=== PATIENT | female | born 1950 | race Caucasian/White ===

== ENCOUNTER 2016-10-26 19:46 | Inpatient (IN) | payer OTHER ==
[~2016-10-26] VITALS: Ht 157.5 cm; Wt 72.6 kg
[~2016-10-26 19:46] MED LIST: ATI1 PO; ATIVAN0.5 M1 PO; BENTYL10 MG PO; COL100 PO; COZAAR100 MG PO; ECO81 PO; ELA25 PO; HYDROCHLOROTHIA25 MG PO; KLOR-CON M2020 MEQ PO; LEXAPRO10 MG PO; LOMOTIL1 TAB PO; LOP50 PO; METOPROLOL SUCC50 M1 PO; METOPROLOL TART25 M1 PO; MYL80 CH; NPHOS PO; OMEPRAZOLE D/R20 M1 PO; ONDANSETRON ODT4 M1 PO; PRILOSEC20 MG PO; SERTRALINE HYDR50 M1 PO; STOOL SOFTENER100 MG PO; XANAX0.5 MG PO; ZOCOR10 MG PO; ZOFRAN ODT4 MG SL; [UNRECOGNIZED DRUG - REMARK] PO
[2016-10-26 21:32] LABS: BASOPHIL % 0.3 % (0-2); RED CELL DISTRIBUTION WIDTH 14.3 % (11.5-14.5)
[2016-10-26 21:37] LABS: CALCIUM 9.3 mg/dL (8.5-10.1); CARBON DIOXIDE 29.8 mmol/L (21-32); CHLORIDE SERUM 90 mmol/L (98-107); CREATININE SERUM 3.8 mg/dL (0.6-1.0); GFR1 13 mL/min; GLUCOSE SERUM 121 mg/dL (74-106); POTASSIUM SERUM 3.8 mmol/L (3.5-5.1); SODIUM SERUM 129 mmol/L (136-145)
[2016-10-26 21:41] LABS: ALBUMIN 3.1 g/dL (3.4-5.0); ALKALINE PHOSPHATASE 130 U/L (46-116); ALT/SGPT 201 U/L (14-59); AMYLASE 37 U/L (25-115); AST/SGOT 307 U/L (15-37); BILIRUBIN TOTAL 5.7 mg/dL (0.20-1.00); LIPASE 305 IU/L (73-393); TOTAL PROTEIN, SERUM 7.2 g/dL (6.4-8.2)
[2016-10-26 21:46] LABS: PLATELET COUNT 65 x10^3mcL (130-400)
[2016-10-26 22:53] LABS: UA SPECIFIC GRAVITY <=1.005 (1.005-1.035); microscopic required? YES; urine erythrocyte 1+ (NEGATIVE)
[2016-10-26 23:50] VITALS: BP 113/63
[2016-10-27 01:26] LABS: T3 TOTAL 0.96 ng/mL
[2016-10-27 01:35] LABS: CHOLESTEROL/HDL RATIO 4.1
[2016-10-27 01:42] LABS: FREE T4 1.81 ng/dL (0.76-1.46); FREE THYROXINE INDEX 3.7 ug/dL (1.4-4.5); T4(THYROXINE) 9.7 ug/dL (4.7-13.3)
[2016-10-27 06:01] LABS: BASOPHIL % 0.5 % (0-2); RED CELL DISTRIBUTION WIDTH 14.2 % (11.5-14.5)
[2016-10-27 06:02] VITALS: BP 103/60
[2016-10-27 06:28] LABS: CALCIUM 8.5 mg/dL (8.5-10.1); CARBON DIOXIDE 23.4 mmol/L (21-32); CREATININE SERUM 3.9 mg/dL (0.6-1.0); MAGNESIUM 1.2 mg/dL (1.8-2.4); PHOSPHOROUS 1.7 mg/dL (2.5-4.9); POTASSIUM SERUM 3.8 mmol/L (3.5-5.1)
[2016-10-27 06:59] LABS: PLATELET COUNT 66 x10^3mcL (130-400)
[2016-10-27 07:21] LABS: AMPHETAMINE QUAL UR NONE DETECTED (NEG <=1000)
[2016-10-27 09:00] VITALS: BP 100/65
[2016-10-27 12:17] VITALS: Ht 157.5 cm; Wt 72.6 kg
[2016-10-27 13:57] VITALS: BP 113/69
[2016-10-27 16:29] VITALS: BP 115/69
[2016-10-27 22:02] VITALS: BP 100/66
[2016-10-28 06:02] LABS: BASOPHIL % 0.2 % (0-2)
[2016-10-28 06:11] VITALS: BP 108/65
[2016-10-28 06:18] LABS: CALCIUM 7.9 mg/dL (8.5-10.1); CARBON DIOXIDE 24.2 mmol/L (21-32); MAGNESIUM 2.2 mg/dL (1.8-2.4); PHOSPHOROUS 3.1 mg/dL (2.5-4.9); POTASSIUM SERUM 3.6 mmol/L (3.5-5.1)
[2016-10-28 06:22] LABS: CREATININE SERUM 4.1 mg/dL (0.6-1.0)
[2016-10-28 06:52] LABS: PLATELET COUNT 63 x10^3mcL (130-400); RED CELL DISTRIBUTION WIDTH 14.6 % (11.5-14.5)
[2016-10-28 09:16] VITALS: BP 101/65
[2016-10-28 12:55] VITALS: BP 104/61
[2016-10-28 16:59] VITALS: BP 112/67
[2016-10-28 20:35] VITALS: BP 112/69
[2016-10-29 05:42] VITALS: BP 106/68
[2016-10-29 06:24] LABS: BASOPHIL % 0.7 % (0-2)
[2016-10-29 06:48] LABS: PLATELET COUNT 70 x10^3mcL (130-400); RED CELL DISTRIBUTION WIDTH 15.1 % (11.5-14.5)
[2016-10-29 07:03] LABS: CALCIUM 7.4 mg/dL (8.5-10.1); CARBON DIOXIDE 22.1 mmol/L (21-32); CREATININE SERUM 2.4 mg/dL (0.6-1.0); MAGNESIUM 1.5 mg/dL (1.8-2.4); PHOSPHOROUS 4.2 mg/dL (2.5-4.9); POTASSIUM SERUM 3.2 mmol/L (3.5-5.1)
[2016-10-29 09:18] LABS: ALBUMIN 2.3 g/dL (3.4-5.0); BILIRUBIN DIRECT 2.41 mg/dL (0.0-0.2); BILIRUBIN TOTAL 2.87 mg/dL (0.20-1.00); TOTAL PROTEIN, SERUM 5.8 g/dL (6.4-8.2)
[2016-10-29 09:29] VITALS: BP 111/75
[2016-10-29 14:00] VITALS: BP 105/69
[2016-10-29] MEDS ORDERED: ELA25 PO (15:21)
[2016-10-29] MEDS ORDERED: CIPRO500 MG PO (15:23)
[2016-10-29] MEDS ORDERED: LAC PO (15:24)
[2016-10-29 15:30] VITALS: BP 105/69
== END 2016-10-29 17:50 | disposition home or self-care (01) | DRG 391 ==
LOC: ED 19:46 → DU 22:57
PROVIDERS: Emergency Medicine; Family Medicine; Internal Medicine Gastroenterology; ADMIT Family Medicine
DX: A08.4 Viral intestinal infection, unspecified (principal); N17.0 Acute kidney failure with tubular necrosis; F10.188 Alcohol abuse with other alcohol-induced disorder; F33.1 Major depressive disorder, recurrent, moderate; R17 Unspecified jaundice; E87.1 Hypo-osmolality and hyponatremia; E44.0 Moderate protein-calorie malnutrition; K52.9 Noninfective gastroenteritis and colitis, unspecified; E86.0 Dehydration; K58.9 Irritable bowel syndrome, unspecified; K29.20 Alcoholic gastritis without bleeding; F41.0 Panic disorder [episodic paroxysmal anxiety]; I48.2 Chronic atrial fibrillation; Z68.29 Body mass index [BMI] 29.0-29.9, adult; Z79.82 Long term (current) use of aspirin
CPT/HCPCS: 83880; 84439; 87046; 87046-59; G0480; J0696; J2405; J3475; J7030; J7042; Q0092

== ENCOUNTER 2017-04-07 08:41 | Emergency (ER) | payer OTHER ==
[~2017-04-07] VITALS: Ht 157.5 cm; Wt 68.9 kg
[~2017-04-07 08:41] MED LIST changes: +CIPRO500 MG PO; +LAC PO
[2017-04-07 09:51] LABS: BILIRUBIN TOTAL 5.9 mg/dL (0.20-1.00); CALCIUM 8.4 mg/dL (8.5-10.1); CARBON DIOXIDE 29.6 mmol/L (21-32); CREATININE SERUM 1.1 mg/dL (0.6-1.0); TOTAL PROTEIN, SERUM 7.6 g/dL (6.4-8.2)
[2017-04-07 09:52] LABS: ALBUMIN 2.8 g/dL (3.4-5.0); BASOPHIL % 0.5 % (0-2)
[2017-04-07 09:53] LABS: POTASSIUM SERUM 2.6 mmol/L (3.5-5.1)
[2017-04-07 09:54] LABS: PLATELET COUNT 75 x10^3mcL (130-400); RED CELL DISTRIBUTION WIDTH 14.9 % (11.5-14.5)
[2017-04-07 12:48] VITALS: BP 102/73
== END 2017-04-07 12:48 | disposition home or self-care (01) ==
LOC: ED 08:41
PROVIDERS: Emergency Medicine
DX: K70.10 Alcoholic hepatitis without ascites (principal); I10 Essential (primary) hypertension; K21.9 Gastro-esophageal reflux disease without esophagitis; I48.91 Unspecified atrial fibrillation; K58.9 Irritable bowel syndrome, unspecified; Z86.79 Personal history of other diseases of the circulatory system; R10.9 Unspecified abdominal pain; R11.2 Nausea with vomiting, unspecified
CPT/HCPCS: J3480; J7030; J7040

== ENCOUNTER 2017-06-25 09:19 | Inpatient (IN) | payer OTHER ==
[~2017-06-25] VITALS: Ht 157.5 cm; Wt 74.9 kg
[2017-06-25 09:23] VITALS: Ht 157.5 cm; Wt 74.9 kg
[2017-06-25 10:48] LABS: BASOPHIL % 0.4 % (0-2)
[2017-06-25 10:49] LABS: RED CELL DISTRIBUTION WIDTH 18.4 % (11.5-14.5)
[2017-06-25 10:54] LABS: PLATELET COUNT 19 x10^3mcL (130-400)
[2017-06-25 11:14] LABS: ALKALINE PHOSPHATASE 128 U/L (46-116); ALT/SGPT 87 U/L (14-59); AST/SGOT 310 U/L (15-37); CALCIUM 7.4 mg/dL (8.5-10.1); CARBON DIOXIDE 25.5 mmol/L (21-32); CHLORIDE SERUM 99 mmol/L (98-107); GFR1 59 mL/min; GLUCOSE SERUM 136 mg/dL (74-106); LIPASE 239 IU/L (73-393); SODIUM SERUM 138 mmol/L (136-145); T4(THYROXINE) 6.4 ug/dL (4.7-13.3); TOTAL PROTEIN, SERUM 7.2 g/dL (6.4-8.2)
[2017-06-25 11:18] LABS: ALBUMIN 2.4 g/dL (3.4-5.0); AMYLASE 23 U/L (25-115); CHOLESTEROL 52 mg/dL (<200); HDL CHOLESTEROL 11 mg/dL (40-60)
[2017-06-25 11:19] LABS: BILIRUBIN TOTAL 17.1 mg/dL (0.20-1.00); POTASSIUM SERUM 2.4 mmol/L (3.5-5.1)
[2017-06-25] MEDS ORDERED: COZAAR100 MG PO (12:24)
[2017-06-25] MEDS ORDERED: HYD25 PO (12:24)
[2017-06-25] MEDS ORDERED: OMEPRAZOLE40 M1 PO (12:24)
[2017-06-25] MEDS ORDERED: BENTYL10 MG PO (12:26)
[2017-06-25 13:05] VITALS: BP 118/60
[2017-06-25 13:08] LABS: microscopic required? YES; urine erythrocyte 2+ (NEGATIVE)
[2017-06-25 13:30] LABS: AMPHETAMINE QUAL UR NONE DETECTED (NEG <=1000)
[2017-06-25 13:49] LABS: T3 TOTAL 0.55 ng/mL
[2017-06-25 13:56] LABS: CHOLESTEROL/HDL RATIO 5.2; FREE T4 1.6 ng/dL (0.76-1.46); FREE THYROXINE INDEX 2.9 ug/dL (1.4-4.5); T4(THYROXINE) 6.8 ug/dL (4.7-13.3)
[2017-06-25 14:30] VITALS: BP 103/61
[2017-06-25] MEDS ORDERED: ATENOLOL25 MG PO (14:54)
[2017-06-25 16:45] LABS: CARBON DIOXIDE 27.6 mmol/L (21-32)
[2017-06-25 17:40] VITALS: BP 76/54
[2017-06-25 18:05] VITALS: BP 72/35
[2017-06-25 19:45] VITALS: BP 112/47
[2017-06-25 23:54] VITALS: BP 104/62
[2017-06-26] VITALS (7 sets, daily range): BP systolic 91–123; BP diastolic 53–83
[2017-06-26 05:35] LABS: BASOPHIL % 0.2 % (0-2)
[2017-06-26 05:40] LABS: PLATELET COUNT 64 x10^3mcL (130-400); RED CELL DISTRIBUTION WIDTH 19.3 % (11.5-14.5)
[2017-06-26 06:34] LABS: CALCIUM 6.8 mg/dL (8.5-10.1); CARBON DIOXIDE 23.5 mmol/L (21-32); CREATININE SERUM 1.5 mg/dL (0.6-1.0); MAGNESIUM 1.5 mg/dL (1.8-2.4); PHOSPHOROUS 3.9 mg/dL (2.5-4.9); POTASSIUM SERUM 3.4 mmol/L (3.5-5.1); TOTAL PROTEIN, SERUM 6.5 g/dL (6.4-8.2)
[2017-06-26 06:41] LABS: ALBUMIN 2.2 g/dL (3.4-5.0)
[2017-06-26 06:43] LABS: BILIRUBIN TOTAL 17.9 mg/dL (0.20-1.00)
[2017-06-26 07:35] LABS: RED BLOOD CELLS 2.36 M/mm3 (4.10-5.10)
[2017-06-26 07:37] LABS: IRON 121 ug/dL (50-170); TOTAL IRON BINDING CAPACITY 124 ug/dL (250-450)
[2017-06-26 19:20] LABS: CALCIUM 6.9 mg/dL (8.5-10.1); CARBON DIOXIDE 22.4 mmol/L (21-32); CREATININE SERUM 1.7 mg/dL (0.6-1.0); POTASSIUM SERUM 3.6 mmol/L (3.5-5.1)
[2017-06-27 06:33] VITALS: BP 87/56
[2017-06-27 06:47] LABS: BASOPHIL % 0.2 % (0-2)
[2017-06-27 06:48] LABS: PLATELET COUNT 60 x10^3mcL (130-400); RED CELL DISTRIBUTION WIDTH 19.7 % (11.5-14.5)
[2017-06-27 07:04] LABS: CALCIUM 7.1 mg/dL (8.5-10.1); CARBON DIOXIDE 20.7 mmol/L (21-32); CREATININE SERUM 1.9 mg/dL (0.6-1.0); MAGNESIUM 1.7 mg/dL (1.8-2.4); PHOSPHOROUS 3.8 mg/dL (2.5-4.9); POTASSIUM SERUM 3.7 mmol/L (3.5-5.1)
[2017-06-27 09:38] VITALS: BP 82/50
[2017-06-27 13:09] VITALS: BP 89/46
[2017-06-27 17:39] VITALS: BP 107/59
[2017-06-27 19:34] LABS: APPEARANCE FLUID HAZY; SOURCE FLUID PARACENTESIS
[2017-06-27 19:35] LABS: COLOR FLUID YELLOW; RBC FLUID 1276 /cumm; WBC FLUID 39 /cumm
[2017-06-27 19:57] LABS: LYMPHOCYTE FLUID 61 %; MONOCYTE FLUID 5 %
[2017-06-27 21:38] VITALS: BP 96/57
[2017-06-28 05:49] VITALS: BP 89/54
[2017-06-28 06:21] LABS: BASOPHIL % 0.1 % (0-2)
[2017-06-28 06:40] LABS: PLATELET COUNT 92 x10^3mcL (130-400); RED CELL DISTRIBUTION WIDTH 19.6 % (11.5-14.5)
[2017-06-28 06:53] LABS: CALCIUM 7.6 mg/dL (8.5-10.1); CARBON DIOXIDE 18.9 mmol/L (21-32); CREATININE SERUM 1.7 mg/dL (0.6-1.0); MAGNESIUM 2.2 mg/dL (1.8-2.4); PHOSPHOROUS 3.6 mg/dL (2.5-4.9); POTASSIUM SERUM 3.6 mmol/L (3.5-5.1)
[2017-06-28 08:48] LABS: BILIRUBIN DIRECT 17.47 mg/dL (0.0-0.2); TOTAL PROTEIN, SERUM 6.9 g/dL (6.4-8.2)
[2017-06-28 08:49] LABS: ALBUMIN 2.2 g/dL (3.4-5.0)
[2017-06-28 08:52] LABS: BILIRUBIN TOTAL 22.37 mg/dL (0.20-1.00)
[2017-06-28 09:09] VITALS: BP 117/55
[2017-06-28 11:30] VITALS: BP 99/51
[2017-06-28] MEDS ORDERED: CLINDAMYCIN HC300 MG PO (13:59)
[2017-06-28] MEDS ORDERED: PROA PO (13:59)
[2017-06-28] MEDS ORDERED: ALD50 PO (14:00)
[2017-06-28] MEDS ORDERED: LAC30L PO (14:01)
[2017-06-28] MEDS ORDERED: FOL1 PO (14:02)
[2017-06-28] MEDS ORDERED: THI100 PO (14:02)
[2017-06-28] MEDS ORDERED: PREDNISOLO15 MG/5 M1 PO (14:07)
[2017-06-28] MEDS ORDERED: LAC PO (14:08)
[2017-06-28] MEDS ORDERED: ZOLOFT25 MG PO (14:21)
[2017-06-28] MEDS ORDERED: LIB25 PO (14:23)
[2017-06-28] MEDS ORDERED: LEVAQUIN750 MG PO (14:29)
[2017-06-28 14:46] VITALS: BP 99/51
[2017-06-28 15:34] VITALS: BP 118/57
[2017-07-05] MEDS ORDERED: CONSTULOSE10 GM/151 PO (21:49)
[2017-07-05] MEDS ORDERED: LAC PO (21:50)
[2017-07-05] MEDS ORDERED: NATURE'S BLEND F1 MG PO (21:50)
[2017-07-05] MEDS ORDERED: MIDODRINE HCL10 MG PO (21:51)
[2017-07-05] MEDS ORDERED: SPIRONOLACTONE100 MG PO (21:51)
[2017-07-05] MEDS ORDERED: CLEOCIN HCL300 MG PO (21:52)
[2017-07-05] MEDS ORDERED: NATURE'S BLEND100 M2 PO (21:52)
[2017-07-05] MEDS ORDERED: PREDNISONE20 MG PO (21:53)
[2017-07-09] MEDS ORDERED: FER300 PO (14:48)
[2017-07-09] MEDS ORDERED: SERTRALINE50 M1 PO (14:49)
[2017-07-09] MEDS ORDERED: SYN25 PO (14:50)
[2017-07-09] MEDS ORDERED: MECLIZINE HCL12.5 MG PO (14:50)
[2017-07-09] MEDS ORDERED: COL100 PO (14:50)
== END 2017-06-28 16:25 | disposition home or self-care (01) | DRG 871 ==
LOC: ED 09:19 → IC 11:45 → DU 11:45 → IC 19:29 → DU 06-26 16:55
PROVIDERS: Emergency Medicine; Family Medicine; Internal Medicine Gastroenterology
PROC: 30233R1 Transfusion of Nonautologous Platelets into Peripheral Vein, Percutaneous Approach (ICD-10-PCS; principal; 2017-06-26)
PROC: 05HM33Z Insertion of Infusion Device into Right Internal Jugular Vein, Percutaneous Approach (ICD-10-PCS; 2017-06-26)
PROC: B543ZZA Ultrasonography of Right Jugular Veins, Guidance (ICD-10-PCS; 2017-06-26)
PROC: 0W9G3ZX Drainage of Peritoneal Cavity, Percutaneous Approach, Diagnostic (ICD-10-PCS; 2017-06-27)
DX: A41.9 Sepsis, unspecified organism (principal); J69.0 Pneumonitis due to inhalation of food and vomit; E43 Unspecified severe protein-calorie malnutrition; N17.0 Acute kidney failure with tubular necrosis; F33.1 Major depressive disorder, recurrent, moderate; F10.288 Alcohol dependence with other alcohol-induced disorder; R65.20 Severe sepsis without septic shock; K70.31 Alcoholic cirrhosis of liver with ascites; K70.11 Alcoholic hepatitis with ascites; K70.0 Alcoholic fatty liver; I10 Essential (primary) hypertension; K58.9 Irritable bowel syndrome, unspecified; E87.6 Hypokalemia; D53.9 Nutritional anemia, unspecified; D69.6 Thrombocytopenia, unspecified; E03.9 Hypothyroidism, unspecified; F41.0 Panic disorder [episodic paroxysmal anxiety]; Z68.26 Body mass index [BMI] 26.0-26.9, adult; Z63.4 Disappearance and death of family member; Z83.3 Family history of diabetes mellitus; Z82.49 Family history of ischemic heart disease and other diseases of the circulatory system; Z80.3 Family history of malignant neoplasm of breast
CPT/HCPCS: 36556; 82962; 83880; 84439; 94150; 97110-GP; G0480; J0696; J1170; J1642; J1885; J1940; J1956; J2001; J2060; J2405; J3411; J3475; J3480; J3490; J7030; J7040; J7042; J7050; J7510; J7620; P9035; Q0092